=== PATIENT | male | born 1975 | race African-American/Black ===

== ENCOUNTER 2024-01-03 03:03 | Emergency (ER) | payer OTHER ==
[2024-01-03] MEDS ORDERED: IBUPROFEN 400 MG TAB ONE (03:30)
[2024-01-03] MEDS ORDERED: GUAIFENESIN/DM 5 ML UCUP ONE (03:54)
[2024-01-03] MEDS ORDERED: PROMETHAZINE 25 MG TABLET ONE (04:12)
[2024-01-03 04:33] LABS: SARS-CoV-2 Antigen CONTROL BLUE LINE VIS/BG OK; SARS-CoV-2 Antigen Rapid Res Negative (Negative)
--- NOTE | 2024-01-03 05:23 | EDPHYS ---
Physician Documentation [facility] Name: Lalo Spear Jr Age: 48 yrs Sex: Male : 1975 Arrival Date: 01/03/2024 Time: 03:03 Bed DX3 Private MD: ED Physician Jonatan Bradford HPI: 01/02 03:28 This 48 yrs old Black Male presents to ER via Ambulatory with complaints of Fever. sp4 21:19 48-year-old male presents with acute onset of body aches fever sore throat feeling sp4 unwell for the past 24 hours. . Historical: - Allergies: 03:17 No Known Allergies; lg3 - Home Meds: 03:17 None [Active]; lg3 - PMHx: 03:17 None; lg3 - PSHx: 03:17 left femur; right wrist; lg3 - Immunization history:: Adult Immunizations up to date, Client reports having NOT received the Covid vaccine. Flu vaccine is not up to date. - Infectious Disease History:: Denies. - Social history:: Smoking status: Patient reports the use of cigarette tobacco products, cigars, Patient uses alcohol, weekly. Patient/guardian denies using street drugs. - Family history:: not pertinent. ROS: 21:19 Constitutional: Positive for fever, chills, sore throat, and bodyaches sp4 21:19 All other systems are negative, Exam: 21:19 Constitutional: This is a well developed, well nourished patient who is awake, alert, sp4 and in no acute distress. Head/Face: Normocephalic, atraumatic. Eyes: Pupils equal round and reactive to light, extra-ocular motions intact. Lids and lashes normal. Conjunctiva and sclera are not injected. Cornea within normal limits. Periorbital areas with no swelling, redness, or edema. ENT: Nares patent. No nasal discharge, no septal abnormalities noted. Tympanic membranes are normal and external auditory canals are clear. Oropharynx with no redness, swelling, or masses, exudates, or evidence of obstruction, uvula midline. Mucous membranes moist. Neck: Trachea midline, no thyromegaly or masses palpated, and no cervical lymphadenopathy. Supple, full range of motion without nuchal rigidity, or vertebral point tenderness. Chest/axilla: Normal chest wall appearance and motion. Nontender with no deformity. No lesions are appreciated. Cardiovascular: Regular rate and rhythm with a normal S1 and S2. No gallops, murmurs, or rubs. Normal PMI, no JVD. No pulse deficits. Respiratory: Lungs have equal breath sounds bilaterally, clear to auscultation and percussion. No rales, rhonchi or wheezes noted. No increased work of breathing, no retractions or nasal flaring. Abdomen/GI: Soft, with normal bowel sounds. No distension or tympany. No guarding or rebound. No evidence of tenderness throughout. Back: No spinal tenderness. No costovertebral tenderness. Skin: Warm, dry with normal turgor. Normal color with no rashes, no lesions, and no evidence of cellulitis. MS/ Extremity: Pulses equal, no cyanosis. Neurovascular intact. Full, normal range of motion. Neuro: Awake and alert, GCS 15, oriented to person, place, time, and situation. Cranial nerves II-XII grossly intact. Motor strength 5/5 in all extremities. Sensory grossly intact. Psych: Awake, alert, with orientation to person, place and time. Behavior, mood, and affect are within normal limits Vital Signs: 03:15 BP 119 / 81; Pulse 111; Resp 17 S; Temp 100(O); Pulse Ox 99% on R/A; Weight 113.4 kg lg3 (R); Height 6 ft. 2 in. (R); 05:14 BP 121 / 84; Pulse 91; Resp 17 S; Temp 98.6(O); Pulse Ox 99% on R/A; lg3 03:15 Body Mass Index 32.10 (113.40 kg, 187.96 cm) lg3 Audra Coma Score: 21:19 Eye Response: spontaneous(4). Motor Response: obeys commands(6). Verbal Response: sp4 oriented(5). Total: 15. MDM: 03:29 Patient medically screened. sp4 21:19 Differential diagnosis: viral Infection, bacterial infection, URI, bronchitis. Data sp4 reviewed: vital signs, nurses notes. 21:21 Consideration of Admission/Observation Escalation of care including sp4 admission/observation considered. ED course: Patient presents with fever body aches symptoms of viral syndrome. Will prescribe symptomatic medications. . 01/02 03:23 Order name: SARS RAPID; Complete Time: 05:21 3 01/02 03:23 Order name: Flu; Complete Time: 05:21 lg3 01/02 03:23 Order name: Strep lg3 01/02 04:12 Order name: Glucose, Ancillary Testing; Complete Time: 05:21 EDMS 01/02 04:35 Order name: Throat Culture EDAR 01/02 03:52 Order name: Accucheck Blood Glucose; Complete Time: 04:06 sp4 Administered Medications: 03:37 Drug: Ibuprofen PO 800 mg PO once Route: PO; lg3 05:14 Follow up: Response: No adverse reaction lg3 04:10 Drug: Dextromethorphan-Guaifenesin PO Liquid 10 mg-100 mg/5 mL 10 ml PO once Route: PO; lg3 05:14 Follow up: Response: No adverse reaction lg3 04:29 Drug: Promethazine PO 25 mg PO once Route: PO; lg3 05:14 Follow up: Response: No adverse reaction lg3 Disposition Summary: 01/03/24 05:23 Discharge Ordered Notes: Location: Home sp4 Problem: new sp4 Symptoms: have improved sp4 Condition: Stable sp4 Diagnosis - Acute fever, acute systemic viral illness, acute common cold sp4 Followup: sp4 - With: Joselito Ghotra DO - When: 7 - 10 days - Reason: Recheck today's complaints Discharge Instructions: - Discharge Summary Sheet sp4 - Fever, Adult, [id number] sp4 Forms: - Work release form lg3 - Family Work Release lg3 - Patient Portal Instructions sp4 Prescriptions: - dextromethorphan-guaifenesin 20-400 mg Oral tablet - take 1 tablet ORAL route every 6 hours PRN cough; 40 tablet; Refills: 0, sp4 Product Selection Permitted - Ibuprofen 800 mg Oral Tablet - take 1 tablet ORAL route every 8 hours As needed take with food; 30 tablet; sp4 Refills: 0, Product Selection Permitted Signatures: Dispatcher [employer] Barbra Galvan RN RN lg3 Jonatan Bradford MD MD sp4
--- NOTE | 2024-01-03 05:23 | ER ---
Nurse's Notes [facility] Name: Lalo Spear Jr Age: 48 yrs Sex: Male : 1975 Arrival Date: 01/03/2024 Time: 03:03 Bed DX3 Private MD: Diagnosis: Acute fever, acute systemic viral illness, acute common cold Presentation: 01/02 03:15 Chief complaint: Patient states: body aches, headache fever, sore throat beginning lg3 yesterday. 1000 mg Tylenol taken \T\[id number]. Coronavirus screen: Client denies travel out of the [place] in the last 14 days. Client presents with at least one sign or symptom that may indicate coronavirus-19. Standard/surgical mask placed on the client. Ebola Screen: No symptoms or risks identified at this time. Initial Sepsis Screen: Does the patient meet any 2 criteria? No. Patient's initial sepsis screen is negative. Does the patient have a suspected source of infection? No. Patient's initial sepsis screen is negative. Risk Assessment: Do you want to hurt yourself or someone else? Patient reports no desire to harm self or others. Onset of symptoms was January 02, 2024. 03:15 Method Of Arrival: Ambulatory lg3 03:15 Acuity: FAYE 4 lg3 Triage Assessment: 03:17 General: Appears in no apparent distress. uncomfortable, Behavior is calm, cooperative. lg3 Pain: Complains of pain in head. EENT: No deficits noted. Reports difficulty swallowing. EENT: Reports. Neuro: No deficits noted. Pineda Agitation-Sedation Scale (RASS): 0 - Alert and Calm Level of Consciousness is awake, alert, obeys commands, Oriented to person, place, time, situation, Reports headache. Cardiovascular: No deficits noted. Denies chest pain, shortness of breath, Capillary refill < 3 seconds Clubbing of nail beds is absent JVD is absent Patient's skin is warm and dry. Respiratory: No deficits noted. Airway is patent Respiratory effort is even, unlabored, Respiratory pattern is regular, symmetrical. GI: No deficits noted. No signs and/or symptoms were reported involving the gastrointestinal system. Abdomen is round non-distended. : No deficits noted. No signs and/or symptoms were reported regarding the genitourinary system. Derm: No deficits noted. No signs and/or symptoms reported regarding the dermatologic system. Skin is intact, is healthy with good turgor, Skin is dry, Skin is normal, Skin temperature is warm. Musculoskeletal: No deficits noted. Circulation, motion, and sensation intact. Range of motion: intact in all extremities. Historical: - Allergies: 03:17 No Known Allergies; lg3 - Home Meds: 03:17 None [Active]; lg3 - PMHx: 03:17 None; lg3 - PSHx: 03:17 left femur; right wrist; lg3 - Immunization history:: Adult Immunizations up to date, Client reports having NOT received the Covid vaccine. Flu vaccine is not up to date. - Infectious Disease History:: Denies. - Social history:: Smoking status: Patient reports the use of cigarette tobacco products, cigars, Patient uses alcohol, weekly. Patient/guardian denies using street drugs. - Family history:: not pertinent. Screenin:20 [facility] ED Fall Risk Assessment (Adult) History of falling in the last 3 months, lg3 including since admission No falls in past 3 months (0 pts) Confusion or Disorientation No (0 pts) Intoxicated or Sedated No (0 pts) Impaired Gait No (0 pts) Mobility Assist Device Used No (0 pt) Altered Elimination No (0 pt) Score/Fall Risk Level 0 - 2 = Low Risk Oriented to surroundings, Maintained a safe environment, Educated pt \T\ family on fall prevention, incl call for assistance when getting out of bed, Assessed \T\ reinforced patient's understanding of fall precautions. Abuse screen: Denies threats or abuse. Denies injuries from another. Nutritional screening: No deficits noted. Tuberculosis screening: No symptoms or risk factors identified. Assessment: 03:20 General: see triage assessment. lg3 05:13 Reassessment: Patient appears in no apparent distress at this time. No changes from lg3 previously documented assessment. Patient and/or family updated on plan of care and expected duration. Pain level reassessed. Patient is alert, oriented x 3, equal unlabored respirations, skin warm/dry/pink. Patient states feeling better. Patient states symptoms have improved. Vital Signs: 03:15 BP 119 / 81; Pulse 111; Resp 17 S; Temp 100(O); Pulse Ox 99% on R/A; Weight 113.4 kg lg3 (R); Height 6 ft. 2 in. (R); 05:14 BP 121 / 84; Pulse 91; Resp 17 S; Temp 98.6(O); Pulse Ox 99% on R/A; lg3 03:15 Body Mass Index 32.10 (113.40 kg, 187.96 cm) lg3 [place] Coma Score: 21:19 Eye Response: spontaneous(4). Motor Response: obeys commands(6). Verbal Response: sp4 oriented(5). Total: 15. ED Course: 03:05 Patient arrived in ED. [email or web address] 03:17 Triage completed. lg3 03:17 Arm band placed on right wrist. lg3 03:20 Patient has correct armband on for positive identification. lg3 03:28 Jonatan Bradford MD is Attending Physician. sp4 03:44 Strep Sent. wm 03:44 Flu Sent. wm 03:44 SARS RAPID Sent. wm 03:44 COVID swab sent to lab. Flu and/or RSV swab sent to lab. Strep swab sent to lab. 05:13 Barbra Mahmood RN is Primary Nurse. lg3 05:22 Joselito Ghotra DO is Referral Physician. sp4 05:30 No provider procedures requiring assistance completed. Patient did not have IV access lg3 during this emergency room visit. Administered Medications: 03:37 Drug: Ibuprofen PO 800 mg PO once Route: PO; lg3 05:14 Follow up: Response: No adverse reaction lg3 04:10 Drug: Dextromethorphan-Guaifenesin PO Liquid 10 mg-100 mg/5 mL 10 ml PO once Route: PO; lg3 05:14 Follow up: Response: No adverse reaction lg3 04:29 Drug: Promethazine PO 25 mg PO once Route: PO; lg3 05:14 Follow up: Response: No adverse reaction lg3 Medication: 05:31 VIS not applicable for this client. lg3 Outcome: 05:23 Discharge ordered by . sp4 05:30 Discharged to home ambulatory, lg3 05:30 Condition: stable 05:30 Discharge instructions given to patient, Instructed on discharge instructions, follow up and referral plans. medication usage, Demonstrated understanding of instructions, follow-up care, medications, Prescriptions given X 2, 05:31 Patient left the ED. lg3 Signatures: Barbra Mahmood RN RN lg3 Sheri Aguilar Jennifer [email or web address] Jonatan Bradford MD MD sp4
[2024-01-03 05:48] VITALS: BP 121/84; TEMP 98.6; O2SAT 99
== END 2024-01-03 05:31 | disposition home or self-care (01) ==
LOC: ER 03:03
DX: J00 Acute nasopharyngitis [common cold] (principal); B34.9 Viral infection, unspecified; Z11.52 Encounter for screening for COVID-19; Z72.0 Tobacco use
CPT/HCPCS: 87070; 36415; 82947; 87081; 87804 ×2; 99284; 87811; Q0169